=== PATIENT | female | born 1940 | race Caucasian/White ===

== ENCOUNTER 2016-12-01 09:51 | Outpatient (CLI) | payer MEDICARE, OTHER ==
--- NOTE | 2016-12-01 20:20 | NM ---
NUCLEAR MEDICINE Wong BRAIN SCAN: 12/01/16 HISTORY: 75-year-old female with tremor. Rule out Parkinson's disease. TECHNIQUE: 130 mg of potassium iodine administered p.o. one hour prior to injection of Ioflupane. 4.6 millicuries of I-123 Ioflupane injected IV. SPECT images of the brain performed several hours la ter. FINDINGS: There is normal distribution and uptake in the bilateral caudate heads and putamina. IMPRESSION: Normal scan. No evidence of Parkinson's disease. POS: MEMO
== END 2016-12-01 09:52 | disposition home or self-care (01) ==
LOC: NM 09:51
PROVIDERS: ATTEND Psychiatry & Neurology Neurology
DX: G20 Parkinson's disease (principal)
CPT/HCPCS: 78607; A9584